=== PATIENT | female | born 1940 | race Caucasian/White ===

== ENCOUNTER → 2017-06-09 | Outpatient (CLI) | payer MEDICARE, OTHER ==
[~2017-06-09] MED LIST: ALEVE220 MG PO; AUGMENTIN 875-1 EACH PO; CENTRUM COMPLE1 EACH PO; COUGH DROPS1 EAC1 PO; EFFEXOR XR 3737.5 MG PO; FLAGYL500 MG PO; MAXZIDE 37.5 M1 EACH PO; NORCO 7.5-3251 EACH PO; [UNRECOGNIZED DRUG - OTHER] PO
== END | disposition disaster alternative care site (69) ==
LOC: GRAD 10:00 → GLAB 10:00 → GRAD 10:21
DX: I65.29 Occlusion and stenosis of unspecified carotid artery (principal); I65.23 Occlusion and stenosis of bilateral carotid arteries; I65.03 Occlusion and stenosis of bilateral vertebral arteries; J84.10 Pulmonary fibrosis, unspecified
CPT/HCPCS: Q9967

== ENCOUNTER 2017-06-17 14:00 | Inpatient (IN) | payer MEDICARE, OTHER ==
[~2017-06-17] VITALS: Ht 157.5 cm; Wt 53.9 kg
--- NOTE | ~2017-06-17 | OR ---
PATIENT'S NAME: YOLANDA JOSE [facility] AGE: 76 Y [address] ROOM: [facility] [place] [place], [place] [address] LOCATION: GPCU ADMIT DATE: 06/20/2017 OR/Procedure Report DISCHARGE DATE: FAMILY PHYSICIAN: Isadora Whitehead APRN ATTENDING PHYSICIAN: LOY ECHEVERRIA SURGEON: Loy Echeverria MD INVASIVE PHYSICIAN: DATE OF PROCEDURE: 06/20/2017 PREOPERATIVE DIAGNOSIS: High-grade left internal carotid artery stenosis. POSTOPERATIVE DIAGNOSIS: High-grade left internal carotid artery stenosis. PROCEDURE: Left carotid endarterectomy. Bovine pericardial patch. GLOBAL SAFETY OFFICER: Radha Jiménez, nurse practitioner. She assisted with retraction and closure of the wound during the case. ANESTHESIA: General. ESTIMATED BLOOD LOSS: 100 mL. OPERATIVE FINDINGS: High-grade left ICA stenosis. Neurologically intact at the end of the case. DESCRIPTION OF PROCEDURE: The patient was brought to the operating room, placed supine on the operating table, placed under general anesthesia, prepped and draped in a sterile manner. Preop time-out was performed. The patient received preoperative antibiotics. We made a standard incision along the anterior border of the left sternocleidomastoid muscle, dissected down to the internal jugular, dissected along its length, and identified the facial vein, ligated and transected the facial vein. We then retracted the internal jugular laterally. We then dissected out the common, the external, internal, and superior thyroid. We gave 5000 units of heparin. We clamped in all 3 major arteries and placed a clip on the superior thyroid. Removed the clamp from the internal, performed a back pressure, which showed a pressure of over 50, meaning that no shunt was required. We then replaced the clamp. We made an arteriotomy using 11 blade as well as Farah scissors. We then removed the plaque in its entirety. We then performed a patch angioplasty using two 6-0 [place] sutures as well as a bovine pericardial patch. Before completing anastomosis, we allowed backbleeding from all 3 major vessels. We then completed the anastomosis, removed the clamp from the external and the common, we waited 10 heartbeats and removed the clamp from the internal. Flow was confirmed with all 3 vessels with Doppler. Heparin was reversed with the use of protamine. Thrombin was used locally in the wound. Deep layers were PATIENT'S NAME: YOLANDA JOSE [facility] AGE: 76 Y [address] ROOM: [place] [address] LOCATION: GPCU ADMIT DATE: 06/20/2017 OR/Procedure Report DISCHARGE DATE: FAMILY PHYSICIAN: Isadora Whitehead APRN ATTENDING PHYSICIAN: LOY ECHEVERRIA closed with 2-0 and 3-0 Vicryl. Skin was closed with running 4-0 Monocryl. The patient awoke in the operating room, neurologically intact, transferred to recovery room and then to the floor. MD ONESIMO PICKARD/raeann /[id number] d: 06/20/171921 t: 06/29/17 1627, OPERATIVE SUMMARY
[~2017-06-17 14:00] MED LIST changes: -COUGH DROPS1 EAC1 PO; -NORCO 7.5-3251 EACH PO; -[UNRECOGNIZED DRUG - OTHER] PO
[2017-06-20] MEDS ORDERED: COUGH DROPS1 EAC1 PO (07:02)
[2017-06-21 04:43] LABS: ANION GAP 10.4 (10.0-19.0); CALCIUM 9.2 mg/dL (8.5-10.5); CREATININE 0.7 mg/dL (0.5-1.1); POTASSIUM 4.4 mMol/L (3.7-5.1)
[2017-06-21 04:49] LABS: BASOPHIL % 0.2 %; EOSINOPHIL # 0.2 K/uL (0.0-0.5); EOSINOPHIL % 1.4 %; HEMATOCRIT 35.6 % (33.0-46.0); HEMOGLOBIN 12.2 g/dL (10.0-15.0); IMMATURE GRANULOCYTE # 0.1 K/uL (0.0-0.3); IMMATURE GRANULOCYTE % 0.5 %; LYMPHOCYTE % 23.6 %; MCH 31.3 pg (27.0-34.0); MCHC 34.3 gm/dL (32.0-36.5); MCV 91.3 fl (83.0-98.0); MONOCYTE # 1.3 K/uL (0.0-1.0); MONOCYTE % 10.2 %; MPV 10.6 fl (9.4-12.4); NEUTROPHIL # (ANC) 8.1 K/uL (1.8-7.8); NEUTROPHIL % 64.1 %; NRBC % 0 /100WBC (0-0.00); PLATELET COUNT 232 K/uL (150-450); WBC 12.6 K/uL (4.0-11.0)
--- NOTE | 2017-06-21 05:04 | NUR ---
Significant Event: PT A/O X3. VSS. SBP 130-150 HR 60-70 SATS 94% ON RA, PT WILL DROP DOWN TO 88-89% DURING ACTIVITY. ART LINE REMOVED AT 0415, DRESSING C/D/I. IV IN RIGHT FOREARM AND LEFT WRIST SL. PT C/O PAIN X1 2 NORCO GIVEN, NO FURTHER C/O PAIN. PT IS A SMOKER, LUNGS CRACKLES POSTERIORLY. NON-PRODUCTIVE COUGH. PT STATES THIS IS HER NORMAL. PT MAY DISCHARGE TODAY. PT HAD GOOD UOP [id number]. NECK MEASURED 37CM X3. Follow up:FOLLOW CARE PLAN
[2017-06-21] MEDS ORDERED: NORCO 7.5-3251 EACH PO ×2 (11:26→11:27)
--- NOTE | 2017-06-21 12:59 | NUR ---
1230 PT DISMISSED TO HOME WITH DAUGHTER TO DRIVE. AT TIME OF DC PT IS A/O PINK WARM AND DRY, SLIGHTLY UNSTEADY ON FEET WHEN UP BUT SAYS HER KNEE ARE JUST STIFF FROM SITTING . LUNGS HAVE WHEEZES THROUGHOUT, ABDOMEN IS SOFT AND NONTENDER WITH PRESNENT BOWEL SOUNDS, PULSES ARE STRONG SHE HAS NO PERIPHERAL EDEMA. INCISION TO LT NECK IS CLEAN DRY AND INTACT, NO DRAINAGE, OR HEMATOMA, SHE DOES HAVE SOME BRIUSING RIGHT AROUND THE INCISION. DISMISSAL INSTRUCTIONS, PRESCRIPTIONS, MEDICATION AND MEDICATION INSTRUCTIONS, FOLLOW UP CARE AND APPOINTMENTS ALL WENT OVER WITH PT AND DAUGHTER, BOTH VERBALIZE UNDERSTANDING. W/C TO [facility] FOR DC TO HOME.
[2017-07-25] MEDS ORDERED: [UNRECOGNIZED DRUG - OTHER] PO (09:13)
== END 2017-06-21 12:25 | disposition disaster alternative care site (69) | DRG 39 ==
LOC: GPCU 06-20 06:16
PROVIDERS: ADMIT Surgery Vascular Surgery
PROC: 03CL0ZZ Extirpation of Matter from Left Internal Carotid Artery, Open Approach (ICD-10-PCS; principal; 2017-06-20)
PROC: 03UL0KZ Supplement Left Internal Carotid Artery with Nonautologous Tissue Substitute, Open Approach (ICD-10-PCS; 2017-06-20)
DX: I65.22 Occlusion and stenosis of left carotid artery (principal); F17.210 Nicotine dependence, cigarettes, uncomplicated; I25.10 Atherosclerotic heart disease of native coronary artery without angina pectoris
CPT/HCPCS: J0690; J1100; J1644; J1650; J2001; J2250; J2405; J2720; J3480; J7030